=== PATIENT | male | born 1985 | race Caucasian/White ===

== ENCOUNTER → 2022-05-04 | Outpatient (CLI) | payer OTHER | LOC: M CARPUL 09:03 | PROVIDERS: ATTEND Internal Medicine Critical Care Medicine | DX: I27.20 Pulmonary hypertension, unspecified (principal); I10 Essential (primary) hypertension ==

== ENCOUNTER 2022-07-19 09:50 | Emergency (ER) | payer OTHER ==
[~2022-07-19] VITALS: Ht 182.9 cm; Wt 93.0 kg
[2022-07-19] MEDS ORDERED: AMLO1TAB25 (09:55)
[2022-07-19] MEDS ORDERED: VITA100093 (09:55)
[2022-07-19] MEDS ORDERED: SIMV-252 (09:55)
[2022-07-19 11:02] LABS: BASO # 0.1 10^3/uL (0.0-0.2); EOS # 0.2 10^3/uL (0.0-0.5); EOS % 2.6 % (0.0-3.0); HEMATOCRIT 40.5 % (42.0-52.0); HEMOGLOBIN 14.4 g/dl (13.5-17.5); LYMPH # 1.3 10^3/uL (1.5-5.0); LYMPH % 21.4 % (24.0-44.0); MEAN CORPUSCULAR HEMOGLOBIN 31.1 pg (27.0-33.0); MEAN CORPUSCULAR HGB CONC 35.6 g/dl (32.0-36.5); MEAN CORPUSCULAR VOLUME 87.5 fl (80.0-96.0); MONO # 0.4 10^3/uL (0.0-0.8); MONO % 6.6 % (2.0-8.0); NEUTROPHILS # 4.2 10^3/uL (1.5-8.5); NEUTROPHILS % 68.2 % (36.0-66.0); PLATELET COUNT, AUTOMATED 248 10^3/uL (150-450); RED BLOOD COUNT 4.63 10^6/uL (4.30-6.10); WHITE BLOOD COUNT 6.2 10^3/uL (4.0-10.0)
[2022-07-19 11:34] LABS: LIPASE 28 U/L (12-53)
[2022-07-19 11:36] LABS: ALBUMIN 4.4 G/DL (3.2-5.2); ALKALINE PHOSPHATASE 82 U/L (46-116); ALT/SGPT 27 U/L (7.0-40); AST/SGOT 18 U/L (<34); BILIRUBIN,DIRECT 0.1 MG/DL (<0.4); BILIRUBIN,TOTAL 0.6 MG/DL (0.3-1.2); BLOOD UREA NITROGEN 13 MG/DL (9-23); CALCIUM LEVEL 9.3 MG/DL (8.5-10.1); CARBON DIOXIDE LEVEL 25 MMOL/L (20-31); CHLORIDE LEVEL 103 MMOL/L (98-107); CREATININE FOR GFR 0.76 MG/DL (0.70-1.30); GLOMERULAR FILTRATION RATE > 60.0 (>60); GLUCOSE, FASTING 99 MG/DL (60-100); POTASSIUM SERUM 4.1 MMOL/L (3.5-5.1); SODIUM LEVEL 138 MMOL/L (136-145); TOTAL PROTEIN 6.6 G/DL (5.7-8.2)
[2022-07-19 11:37] LABS: FREE T4 0.98 NG/DL (0.89-1.76)
[2022-07-19 11:38] LABS: THYROID STIMULATING HORMONE 0.811 uIU/ML (0.55-4.78)
[2022-07-19 11:57] LABS: CK-MB VALUE MASS 1.4 NG/ML (<3.6)
[2022-07-19 11:58] LABS: CPK CREATINE PHOSPHOKINASE 239 U/L (46-171); MB/CK RELATIVE INDEX 0.58 (< OR =4)
[2022-07-19 12:24] VITALS: BP 133/79
== END 2022-07-19 12:28 | disposition home or self-care (01) ==
LOC: M ED 09:50
DX: R55 Syncope and collapse (principal); R42 Dizziness and giddiness; R94.4 Abnormal results of kidney function studies; I10 Essential (primary) hypertension; E78.5 Hyperlipidemia, unspecified; I35.1 Nonrheumatic aortic (valve) insufficiency; M94.0 Chondrocostal junction syndrome [Tietze]; Z79.899 Other long term (current) drug therapy

== ENCOUNTER → 2022-08-28 | Outpatient (CLI) | payer OTHER ==
[~2022-08-28] MED LIST: AMLO1TAB25; SIMV-252; VITA100093
== END ==
LOC: M SLEEP HO 08-02 10:41
PROVIDERS: ATTEND Internal Medicine Critical Care Medicine
DX: G47.30 Sleep apnea, unspecified (principal)

== ENCOUNTER 2023-08-25 21:46 | Emergency (ER) | payer OTHER ==
[~2023-08-25] VITALS: Ht 182.9 cm; Wt 91.6 kg
[2023-08-25 21:47] VITALS: BP 139/90; TEMP 99; O2SAT 100
[2023-08-25 22:29] LABS: BASO % 0.5 % (0.0-1.0); EOS # 0.3 10^3/uL (0.0-0.5); EOS % 4.1 % (0.0-3.0); HEMOGLOBIN 15.6 g/dl (13.5-17.5); LYMPH # 2.6 10^3/uL (1.5-5.0); LYMPH % 31.9 % (24.0-44.0); MEAN CORPUSCULAR HEMOGLOBIN 32.2 pg (27.0-33.0); MEAN CORPUSCULAR HGB CONC 36.3 g/dl (32.0-36.5); MEAN CORPUSCULAR VOLUME 88.8 fl (80.0-96.0); MONO # 0.4 10^3/uL (0.0-0.8); NEUTROPHILS # 4.7 10^3/uL (1.5-8.5); NEUTROPHILS % 58.4 % (36.0-66.0); PLATELET COUNT, AUTOMATED 273 10^3/uL (150-450); RED BLOOD COUNT 4.84 10^6/uL (4.30-6.10); WHITE BLOOD COUNT 8.1 10^3/uL (4.0-10.0)
[2023-08-25 22:41] LABS: INR 0.9; PROTHROMBIN TIME 11.9 SECONDS (12.5-14.5)
[2023-08-25 22:53] LABS: LIPASE 31 U/L (12-53)
[2023-08-25 22:55] LABS: ALBUMIN 4.5 G/DL (3.2-5.2); ALKALINE PHOSPHATASE 108 U/L (46-116); ALT/SGPT 32 U/L (7.0-40); AST/SGOT 9 U/L (<34); BILIRUBIN,DIRECT 0.1 MG/DL (<0.4); BILIRUBIN,TOTAL 0.4 MG/DL (0.3-1.2); BLOOD UREA NITROGEN 13 MG/DL (9-23); CALCIUM LEVEL 9.4 MG/DL (8.5-10.1); CARBON DIOXIDE LEVEL 27 MMOL/L (20-31); CHLORIDE LEVEL 106 MMOL/L (98-107); CK-MB VALUE MASS < 1.0 NG/ML (<3.6); CREATININE FOR GFR 0.82 MG/DL (0.70-1.30); GLOMERULAR FILTRATION RATE > 60.0 (>60); GLUCOSE, FASTING 127 MG/DL (60-100); POTASSIUM SERUM 3.8 MMOL/L (3.5-5.1); SODIUM LEVEL 140 MMOL/L (136-145); TOTAL PROTEIN 6.9 G/DL (5.7-8.2)
[2023-08-25 23:04] LABS: CPK CREATINE PHOSPHOKINASE 153 U/L (46-171); MB/CK RELATIVE INDEX 0.65 (< OR =4)
== END 2023-08-26 00:09 | disposition left against medical advice (07) ==
LOC: M ED 21:46
DX: Z53.21 Procedure and treatment not carried out due to patient leaving prior to being seen by health care provider (principal)

== ENCOUNTER 2023-11-18 08:16 | Emergency (ER) | payer OTHER ==
[~2023-11-18] VITALS: Ht 182.9 cm; Wt 89.4 kg
[2023-11-18 08:21] VITALS: BP 148/91; TEMP 98; O2SAT 99
[2023-11-18] MEDS ORDERED: TIZA10TA (08:29)
[2023-11-18] MEDS ORDERED: ATOR1TAB19 (08:29)
[2023-11-18] MEDS ORDERED: HYDR-3363 PO (11:53)
== END 2023-11-18 12:03 | disposition home or self-care (01) ==
LOC: M ED 08:16
DX: F41.9 Anxiety disorder, unspecified (principal); Z79.899 Other long term (current) drug therapy

== ENCOUNTER 2023-11-19 17:44 | Emergency (ER) | payer OTHER ==
[~2023-11-19] VITALS: Ht 182.9 cm; Wt 89.7 kg
[~2023-11-19 17:44] MED LIST changes: +ATOR1TAB19; +HYDR-3363 PO; +TIZA10TA
[2023-11-19 17:48] VITALS: BP 148/82; TEMP 99.2; O2SAT 97
== END 2023-11-19 18:39 | disposition left against medical advice (07) ==
LOC: M ED 17:44
DX: Z53.21 Procedure and treatment not carried out due to patient leaving prior to being seen by health care provider (principal)

== ENCOUNTER 2023-11-22 12:27 | Emergency (ER) | payer OTHER ==
[~2023-11-22] VITALS: Ht 182.9 cm; Wt 91.5 kg
[2023-11-22 17:02] LABS: AMPHETAMINES LEVEL URINE NEGATIVE (NEGATIVE); BARBITURATES URINE NEGATIVE (NEGATIVE); BENZODIAZEPINES URINE NEGATIVE (NEGATIVE); CANNABINOIDS URINE NEGATIVE (NEGATIVE); COCAINE METABOLITE URINE NEGATIVE (NEGATIVE); METHADONE URINE NEGATIVE (NEGATIVE); OPIATES URINE NEGATIVE (NEGATIVE); PHENCYCLIDINE URINE NEGATIVE (NEGATIVE)
[2023-11-22 17:06] LABS: BASO % 0.6 % (0.0-1.0); EOS # 0.1 10^3/uL (0.0-0.5); EOS % 1.7 % (0.0-3.0); HEMATOCRIT 41.2 % (42.0-52.0); HEMOGLOBIN 14.6 g/dl (13.5-17.5); LYMPH # 2.1 10^3/uL (1.5-5.0); LYMPH % 31.2 % (24.0-44.0); MEAN CORPUSCULAR HEMOGLOBIN 31.5 pg (27.0-33.0); MEAN CORPUSCULAR HGB CONC 35.4 g/dl (32.0-36.5); MEAN CORPUSCULAR VOLUME 88.8 fl (80.0-96.0); MONO # 0.4 10^3/uL (0.0-0.8); MONO % 6.2 % (2.0-8.0); NEUTROPHILS % 60.1 % (36.0-66.0); PLATELET COUNT, AUTOMATED 260 10^3/uL (150-450); RED BLOOD COUNT 4.64 10^6/uL (4.30-6.10); WHITE BLOOD COUNT 6.6 10^3/uL (4.0-10.0)
[2023-11-22] MEDS: NS 1,000 ML IV ONE (17:17)
[2023-11-22 17:21] LABS: ERYTHROCYTE SEDIMENTATION RATE 1 mm/hr (0-15)
[2023-11-22 17:23] LABS: PARTIAL THROMBOPLASTIN TIME 23.5 SECONDS (24.8-34.2); PROTHROMBIN TIME 12.9 SECONDS (12.5-14.5)
[2023-11-22 17:29] LABS: LIPASE 31 U/L (12-53)
[2023-11-22 17:30] LABS: C REACTIVE PROTEIN QUANTITATIV < 0.40 MG/DL (<1.0)
[2023-11-22 17:32] LABS: ALBUMIN 4.7 G/DL (3.2-5.2); ALKALINE PHOSPHATASE 89 U/L (46-116); ALT/SGPT 26 U/L (7.0-40); AST/SGOT 14 U/L (<34); BILIRUBIN,DIRECT 0.2 MG/DL (<0.4); BILIRUBIN,TOTAL 0.7 MG/DL (0.3-1.2); BLOOD UREA NITROGEN 10 MG/DL (9-23); CALCIUM LEVEL 9.8 MG/DL (8.5-10.1); CARBON DIOXIDE LEVEL 26 MMOL/L (20-31); CHLORIDE LEVEL 106 MMOL/L (98-107); CK-MB VALUE MASS 1.3 NG/ML (<3.6); CPK CREATINE PHOSPHOKINASE 343 U/L (46-171); CREATININE FOR GFR 0.81 MG/DL (0.70-1.30); GLOMERULAR FILTRATION RATE > 60.0 (>60); GLUCOSE, FASTING 91 MG/DL (60-100); MAGNESIUM LEVEL 2.2 MG/DL (1.8-2.4); MB/CK RELATIVE INDEX 0.37 (< OR =4); SODIUM LEVEL 139 MMOL/L (136-145); TOTAL PROTEIN 7.1 G/DL (5.7-8.2)
[2023-11-22 17:33] LABS: THYROID STIMULATING HORMONE 0.836 uIU/ML (0.55-4.78)
[2023-11-22 17:34] LABS: FREE T4 1.21 NG/DL (0.89-1.76)
[2023-11-22] MEDS ORDERED: ISOVUE-370 76% 100ML VIAL As Ordered ONE (17:52)
[2023-11-22] MEDS: NICOTINE 21MG/24HR 1 EA TRANSDERMAL TD ONE (19:37)
[2023-11-22 20:19] LABS: CK-MB VALUE MASS 1.2 NG/ML (<3.6)
[2023-11-22 20:21] LABS: MB/CK RELATIVE INDEX 0.39 (< OR =4)
[2023-11-22] MEDS ORDERED: PEPC1TAB5 PO (20:56)
[2023-11-22] MEDS ORDERED: ASPI81TA26 PO (20:57)
[2023-11-22 21:07] VITALS: BP 128/75; TEMP 97.4; O2SAT 98
== END 2023-11-22 21:08 | disposition home or self-care (01) ==
LOC: M ED 12:27
DX: K21.9 Gastro-esophageal reflux disease without esophagitis (principal); F17.210 Nicotine dependence, cigarettes, uncomplicated; K59.00 Constipation, unspecified; R00.2 Palpitations; F41.9 Anxiety disorder, unspecified; I25.84 Coronary atherosclerosis due to calcified coronary lesion; I10 Essential (primary) hypertension; E78.5 Hyperlipidemia, unspecified; F17.290 Nicotine dependence, other tobacco product, uncomplicated; Z79.899 Other long term (current) drug therapy; Z79.1 Long term (current) use of non-steroidal anti-inflammatories (NSAID)
CPT/HCPCS: 36415; 70491; 71045; 71260; 74177; 80048; 80076; 80307; 81001; 82550; 82553; 83690; 83735; 84439; 84443; 84484; 85025; 85610; 85652; 85730; 86140; 93005; 93041; 94760; 99284; Q9967

== ENCOUNTER → 2023-11-30 | Outpatient (CLI) | payer OTHER ==
[~2023-11-30] MED LIST changes: +ASPI81TA26 PO; +E-Z-GAS II EFFERVESCENT PACKET (SODIUM BICARB./CITRIC ACID/SIMETHICONE) As Ordered ONE; +E-Z-HD 98% w/w 340GM SUSP BTL As Ordered ONE; +E-Z-PAQUE 96% w/w SUSP 176GM BTL As Ordered ONE; +PEPC1TAB5 PO
== END ==
LOC: M RAD 07:33
PROVIDERS: ATTEND Internal Medicine Gastroenterology
DX: R07.89 Other chest pain (principal); R13.10 Dysphagia, unspecified

== ENCOUNTER 2024-04-08 17:45 | Emergency (ER) | payer OTHER ==
[~2024-04-08] VITALS: Ht 182.9 cm; Wt 87.9 kg
[~2024-04-08 17:45] MED LIST changes: -E-Z-GAS II EFFERVESCENT PACKET (SODIUM BICARB./CITRIC ACID/SIMETHICONE) As Ordered ONE; -E-Z-HD 98% w/w 340GM SUSP BTL As Ordered ONE; -E-Z-PAQUE 96% w/w SUSP 176GM BTL As Ordered ONE
[2024-04-08 17:49] VITALS: BP 144/95; TEMP 99.7; O2SAT 100
[2024-04-08] MEDS ORDERED: OMEP40CA5 PO (18:01)
[2024-04-08 19:20] LABS: BASO # 0.1 10^3/uL (0.0-0.2); BASO % 0.9 % (0.0-1.0); EOS # 0.2 10^3/uL (0.0-0.5); EOS % 2.6 % (0.0-3.0); HEMATOCRIT 43.2 % (42.0-52.0); HEMOGLOBIN 15.4 g/dl (13.5-17.5); LYMPH # 2.3 10^3/uL (1.5-5.0); LYMPH % 33.4 % (24.0-44.0); MEAN CORPUSCULAR HEMOGLOBIN 31.3 pg (27.0-33.0); MEAN CORPUSCULAR HGB CONC 35.6 g/dl (32.0-36.5); MEAN CORPUSCULAR VOLUME 87.8 fl (80.0-96.0); MONO # 0.5 10^3/uL (0.0-0.8); MONO % 7.3 % (2.0-8.0); NEUTROPHILS # 3.8 10^3/uL (1.5-8.5); NEUTROPHILS % 55.7 % (36.0-66.0); PLATELET COUNT, AUTOMATED 278 10^3/uL (150-450); RED BLOOD COUNT 4.92 10^6/uL (4.30-6.10); WHITE BLOOD COUNT 6.8 10^3/uL (4.0-10.0)
[2024-04-08 19:23] LABS: CK-MB VALUE MASS 1.5 NG/ML (<3.6)
[2024-04-08 19:25] LABS: BLOOD UREA NITROGEN 11 MG/DL (9-23); CALCIUM LEVEL 9.7 MG/DL (8.5-10.1); CARBON DIOXIDE LEVEL 28 MMOL/L (20-31); CHLORIDE LEVEL 105 MMOL/L (98-107); CPK CREATINE PHOSPHOKINASE 236 U/L (46-171); CREATININE FOR GFR 0.82 MG/DL (0.70-1.30); GLOMERULAR FILTRATION RATE > 60.0 (>60); GLUCOSE, FASTING 97 MG/DL (60-100); MB/CK RELATIVE INDEX 0.63 (< OR =4); SODIUM LEVEL 143 MMOL/L (136-145)
[2024-04-08 19:28] LABS: MB/CK RELATIVE INDEX 0.42 (< OR =4)
== END 2024-04-08 19:06 | disposition left against medical advice (07) ==
LOC: M ED 17:45
DX: Z53.21 Procedure and treatment not carried out due to patient leaving prior to being seen by health care provider (principal)

== ENCOUNTER 2024-04-09 09:08 | Emergency (ER) | payer OTHER ==
[~2024-04-09] VITALS: Ht 182.9 cm; Wt 87.9 kg
[~2024-04-09 09:08] MED LIST changes: +OMEP40CA5 PO
[2024-04-09 09:10] VITALS: BP 149/87; TEMP 98.3; O2SAT 98
== END 2024-04-09 10:50 | disposition left against medical advice (07) ==
LOC: M ED 09:08
DX: Z53.21 Procedure and treatment not carried out due to patient leaving prior to being seen by health care provider (principal)

== ENCOUNTER 2024-04-13 14:45 | Emergency (ER) | payer OTHER ==
[~2024-04-13] VITALS: Ht 182.9 cm; Wt 87.8 kg
[2024-04-13 15:42] LABS: BASO # 0.1 10^3/uL (0.0-0.2); BASO % 0.7 % (0.0-1.0); EOS # 0.1 10^3/uL (0.0-0.5); EOS % 2.1 % (0.0-3.0); HEMATOCRIT 41.4 % (42.0-52.0); HEMOGLOBIN 14.8 g/dl (13.5-17.5); LYMPH # 1.8 10^3/uL (1.5-5.0); LYMPH % 27.1 % (24.0-44.0); MEAN CORPUSCULAR HGB CONC 35.7 g/dl (32.0-36.5); MEAN CORPUSCULAR VOLUME 89.4 fl (80.0-96.0); MONO # 0.4 10^3/uL (0.0-0.8); MONO % 5.7 % (2.0-8.0); NEUTROPHILS # 4.4 10^3/uL (1.5-8.5); NEUTROPHILS % 64.3 % (36.0-66.0); PLATELET COUNT, AUTOMATED 253 10^3/uL (150-450); RED BLOOD COUNT 4.63 10^6/uL (4.30-6.10); WHITE BLOOD COUNT 6.8 10^3/uL (4.0-10.0)
[2024-04-13 15:47] LABS: ERYTHROCYTE SEDIMENTATION RATE < 1 mm/hr (0-15)
[2024-04-13 16:12] LABS: BLOOD UREA NITROGEN 9 MG/DL (9-23); C REACTIVE PROTEIN QUANTITATIV < 0.50 MG/DL (<1.0); CALCIUM LEVEL 9.5 MG/DL (8.5-10.1); CARBON DIOXIDE LEVEL 29 MMOL/L (20-31); CHLORIDE LEVEL 106 MMOL/L (98-107); CREATININE FOR GFR 0.84 MG/DL (0.70-1.30); GLOMERULAR FILTRATION RATE > 60.0 (>60); GLUCOSE, FASTING 99 MG/DL (60-100); SODIUM LEVEL 144 MMOL/L (136-145)
[2024-04-13 18:42] VITALS: BP 153/96; TEMP 97.3; O2SAT 98
== END 2024-04-13 18:49 | disposition home or self-care (01) ==
LOC: M ED 14:45
DX: F41.1 Generalized anxiety disorder (principal); Z79.1 Long term (current) use of non-steroidal anti-inflammatories (NSAID); Z79.899 Other long term (current) drug therapy

== ENCOUNTER 2024-04-24 07:25 | Emergency (ER) | payer OTHER ==
[~2024-04-24] VITALS: Ht 182.9 cm; Wt 87.9 kg
[2024-04-24 09:55] VITALS: BP 157/88; TEMP 96.1; O2SAT 99
== END 2024-04-24 09:58 | disposition home or self-care (01) ==
LOC: M ED 07:25
DX: R06.02 Shortness of breath (principal); J30.9 Allergic rhinitis, unspecified; I10 Essential (primary) hypertension; E78.5 Hyperlipidemia, unspecified; F17.290 Nicotine dependence, other tobacco product, uncomplicated; Z79.1 Long term (current) use of non-steroidal anti-inflammatories (NSAID); Z79.899 Other long term (current) drug therapy